=== PATIENT | male | born 1970 | race Caucasian/White ===

== ENCOUNTER → 2020-03-13 | Outpatient (CLI) | payer OTHER ==
[2016-01-02 19:55] VITALS: BP 142/76
[~2020-03-13] VITALS: Ht 188 cm; Wt 107.5 kg
[~2020-03-13] MED LIST: SINCALIDE 2.2 MCG in IV NORMAL SALINE 50ML 30 ML IV ONE; SULF1TAB24 PO
--- NOTE | 2020-03-13 10:14 | RAD ---
HEPATOBILIARY SCAN WITH EJECTION FRACTION History: Reason: RUQ PAIN Procedure: Serial static images are obtained of the liver and biliary system in the frontal projectio n following IV administration of 5.5 mCi of Technetium 99m Choletec. After filling of the gallbladd er, 2.2 mcg of sincalide were infused over 30 minutes and dynamic imaging continued over this period. The gallbladder ejection fraction was calculated. Findings: There is prompt hepatic clearance of tracer from the blood pool. There is homogeneous distribution th roughout the liver. There is normal filling of the gallbladder and normal emptying into the biliary s ystem. There is preferential filling of the gallbladder prior to the sincalide infusion, a normal jose iant. Tracer is seen in multiple small bowel loops at the conclusion of the sincalide infusion. The g allbladder ejection fraction measures 76% (normal gallbladder EF is 35% or greater). IMPRESSION: 1. The cystic duct and common bile duct are patent. Negative for acute cholecystitis. 2. The gallbladder ejection fraction is normal. Electronically signed by: Santos Poole MD (03/13/2020 10:11 AM) [id number]
== END ==
LOC: NM 07:47
PROVIDERS: ATTEND Nurse Practitioner Family
DX: K83.5 Biliary cyst (principal)
CPT/HCPCS: 78227; A9537; J2805

== ENCOUNTER → 2020-05-05 | Outpatient (CLI) | payer OTHER ==
[2016-01-02 19:55] VITALS: BP 142/76
[~2020-05-05] MED LIST changes: -SINCALIDE 2.2 MCG in IV NORMAL SALINE 50ML 30 ML IV ONE; +SUCR1TAB35 PO
== END ==
LOC: LAB 09:50
PROVIDERS: ATTEND Nurse Anesthetist, Certified Registered
DX: Z01.812 Encounter for preprocedural laboratory examination (principal); Z20.822 Contact with and (suspected) exposure to COVID-19; R10.9 Unspecified abdominal pain; R19.4 Change in bowel habit
CPT/HCPCS: U0003

== ENCOUNTER → 2020-05-09 | Day surgery (SDC) | payer OTHER ==
[2016-01-02 19:55] VITALS: BP 142/76
[~2020-05-09] MED LIST changes: +IV RINGERS SOLUTION,LACTATED 1,000 ML IV SCH; +LIDOCAINE 2% PF 5 ML VIAL. ONE; +PROPOFOL 10,000 MCG/ML (20ML) VIAL IV ONE
--- NOTE | 2020-05-11 14:08 | PATHOLOGY ---
[facility] Accession Number: [id number] . 01 Material submitted: . PART A: ileum - TERMINAL ILEUM BIOPSY PART B: colon - DESCENDING COLON POLYP. Modifiers: descending . 01 Clinical history: . ABDOMINAL PAIN COLONOSCOPY . 02 Diagnosis: A. Small intestine mucosa, terminal ileum biopsy: - Mild nonspecific ileitis with hyperplastic mucosal-associated lymphoid tissue (Peyer's patch). . B. Colon biopsy, descending colon polyp: - Tubular adenoma. (JPM:shan; 05/11/2020) QMS 05/11/2020 1322 Local . 02 Comment: Sections of the terminal ileum biopsy reveal small intestine mucosa showing hyperplastic mucosal associated lymphoid tissue (Peyer's patch), and focal mild chronic inflammation with a few admixed neutrophils. There are no sprue-like changes. There are no granulomas. . Sections of the descending colon biopsy reveal a tubular adenoma showing no high grade dysplasia or evidence of malignancy. (JPM:shan; 05/11/2020) . 02 Electronically signed: . Eriberto Baldwin MD, Pathologist NPI- [id number] . 01 Gross description: . A. The specimen is received in formalin, labeled "Maojose dkris Manuel, terminal ileum biopsy" and consists of a segment huertas tissue measuring 0.7 x 0.3 cm which is entirely submitted in A1. . B. The specimen is received in formalin, labeled "Maojose dkris Manuel, descending colon polyp" and consists of a segment of brown tissue measuring 0.9 x 0.7 x 0.2 cm which is entirely submitted in B1. (SDY; 05/10/2020) SYU/SYU 05/10/2020 1613 Local . 02 Pathologist provided ICD-10: K52.9, D12.4 . 02 CPT . 850181, [id number] Specimen Comment: A courtesy copy of this report has been sent to [phone] Specimen Comment: [id number] Specimen Comment: Report sent to / DR MUNSON Performed at: [address] [facility], [place] [id number] MD Mark Rothman MD Phone: [phone] [facility]formed [facility]: [facility] [address] [place], [place] [id number] MD Eriberto Baldwin MD Phone: [phone]
== END | disposition home or self-care (01) ==
LOC: SURG 07:36
PROVIDERS: ATTEND Internal Medicine Gastroenterology
DX: R19.4 Change in bowel habit (principal); R10.31 Right lower quadrant pain; K57.30 Diverticulosis of large intestine without perforation or abscess without bleeding; K52.9 Noninfective gastroenteritis and colitis, unspecified; D12.4 Benign neoplasm of descending colon; K63.89 Other specified diseases of intestine; Z79.899 Other long term (current) drug therapy; Z98.890 Other specified postprocedural states; Z72.89 Other problems related to lifestyle
CPT/HCPCS: 45380; 88305; J2001; J2704